=== PATIENT | female | born 1980 | race Caucasian/White ===

== ENCOUNTER 2016-11-11 04:28 | Emergency (ER) | payer OTHER, SELFPAY ==
[~2016-11-11 04:28] MED LIST: ATIVAN0.5 MG PO; B COMPLETE1 TAB PO; B6; FOLIC ACID; FOLIC ACID1 MG; METHYLDOPA250 MG PO; MICRONOR0.35 MG; OMEGA 3 FISH O1 EACH PO; PHENERGAN12.5 MG PO; POTASSIUM CHLO20 ME3 PO; PRENATAL 19 CH1 EAC1 PO; PRENATAL1 EACH PO; PRENATAL1 TAB; PRENATAL1 TAB PO; PROCTOFOAM15 GM RC; TRANDATE100 MG/TAB PO; UNISOM25 MG; VITAMIN B COMP1 EAC1 PO; ZOFRAN ODT8 MG/TAB PO
== END 2016-11-11 06:50 ==
LOC: EDMED 04:28
DX: R09.89 Other specified symptoms and signs involving the circulatory and respiratory systems (principal); I10 Essential (primary) hypertension